=== PATIENT | male | born 1970 | race Caucasian/White ===

== ENCOUNTER 2022-09-28 20:27 | Emergency (ER) | payer OTHER ==
[~2022-09-28] VITALS: Ht 175.3 cm; Wt 72.6 kg
[2022-09-28] MEDS ORDERED: DOXYCYCLINE HY100 MG PO (20:54)
== END 2022-09-28 21:05 | disposition home or self-care (01) ==
LOC: ER 20:33
DX: L08.9 Local infection of the skin and subcutaneous tissue, unspecified (principal); S50.861A Insect bite (nonvenomous) of right forearm, initial encounter
CPT/HCPCS: 99282